=== PATIENT | male | born 1990 | race Caucasian/White ===

== ENCOUNTER 2016-08-26 11:53 | Emergency (ER) | payer BC ==
[2016-08-26 11:58] VITALS: BMI 28.8
[2016-08-26 12:03] VITALS: BP 125/65; PULSE 97; TEMP 98.7
--- NOTE | 2016-08-26 12:59 | PDOC ---
History of Present Illness - General Chief Complaint: Eye Problem Stated Complaint: CRUST ON EYE Time Seen by Provider: 08/26/16 12:19 - History of Present Illness Initial Comments: 08/26/16 12:53 Chief complaint: Crusting of the left eye History of present illness: Patient with a recent URI, woke yesterday morning with crusting of the left eye. No pain, itching, photophobia, or decreased vision. No persistent earache, sore throat, cough. 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 Fundi is benign. Cornea is clear. EOMs are full without diplopia. Anterior chambers clear. Right eye is normal. 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 08/26/16 13:01 Past History - Past Medical History Allergies/Adverse Reactions: Allergies Allergy/AdvReac Type Severity Reaction Status Date / Time No Known Allergies Allergy Verified 08/26/16 11:54 Home Medications: Ambulatory Orders NK [No Known Home Medication] 08/26/16 Other medical history: PT DENIES - Psycho/Social/Smoking Cessation Hx Anxiety: No Suicidal Ideation: No Smoking History: Current some day smoker Number of Cigarettes Smoked Daily: 1 Information on smoking cessation initiated: No Hx Alcohol Use: Yes (OCCASIONAL) Drug/Substance Use Hx: No Substance Use Type: None *Physical Exam - Vital Signs Last Vital Signs Temp Pulse Resp BP Pulse Ox 98.7 F 97 H 18 125/65 98 08/26/16 11:54 08/26/16 11:54 08/26/16 11:54 08/26/16 11:54 08/26/16 11:54 *DC/Admit/Observation/Transfer Diagnosis at time of Disposition: Viral conjunctivitis - Discharge Dispostion Disposition: HOME Condition at time of disposition: Stable Admit: No - Patient Instructions Printed Discharge Instructions: DI for Conjunctivitis Additional Instructions: Warm compresses and frequent handwashing, Towel and linen precautions. - Post Discharge Activity Work/School Note: Back to Work
== END 2016-08-26 13:05 | disposition home or self-care (01) ==
LOC: FER 11:53
DX: B30.9 Viral conjunctivitis, unspecified (principal); B97.89 Other viral agents as the cause of diseases classified elsewhere; F17.210 Nicotine dependence, cigarettes, uncomplicated
CPT/HCPCS: 99281-25